=== PATIENT | male | born 2000 | race Two or more races ===

== ENCOUNTER 2022-09-17 02:08 | Emergency (ER) | payer MEDICAID, OTHER ==
[~2022-09-17] VITALS: Ht 188 cm; Wt 113.0 kg
[2022-09-17 02:08] VITALS: BP 139/63; PULSE 73; RESP 2; O2SAT 98
== END 2022-09-17 04:43 | disposition left against medical advice (07) ==
LOC: ER 02:08
DX: F41.9 Anxiety disorder, unspecified (principal); Z53.21 Procedure and treatment not carried out due to patient leaving prior to being seen by health care provider

== ENCOUNTER 2022-10-26 03:18 | Emergency (ER) | payer MEDICAID ==
[~2022-10-26] VITALS: Ht 188 cm; Wt 113.3 kg
[2022-10-26 03:46] VITALS: BP 124/53; PULSE 78; RESP 16; O2SAT 98
[2022-10-26 04:17] VITALS: TEMP 98
[2022-10-26] MEDS ORDERED: DIPH2.5T73 PO ×3 (04:38→05:21)
[2022-10-26] MEDS ORDERED: DIPHENOXYLATE W/ATROPINE 2.5 MG TAB PO ONE (04:45)
[2022-10-26] MEDS ORDERED: LIDOCAINE VISCOUS 2% 15ML UD PO ONE (04:45)
[2022-10-26] MEDS ORDERED: MAALOX PLUS or MAALOX 30 ML PO ONE (04:45)
== END 2022-10-26 05:05 | disposition home or self-care (01) ==
LOC: ER 03:18
DX: R19.7 Diarrhea, unspecified (principal); K21.9 Gastro-esophageal reflux disease without esophagitis; R11.0 Nausea; F41.9 Anxiety disorder, unspecified; Z79.899 Other long term (current) drug therapy

== ENCOUNTER 2022-12-07 22:27 | Emergency (ER) | payer MEDICAID ==
[~2022-12-07] VITALS: Ht 188 cm; Wt 111.0 kg
[~2022-12-07 22:27] MED LIST: DIPH2.5T73 PO
[2022-12-08] MEDS ORDERED: LORazepam 0.5 MG TAB PO ONE (01:30)
[2022-12-08 03:05] VITALS: BP 113/72; PULSE 76; RESP 16; TEMP 98; O2SAT 99
== END 2022-12-08 03:15 | disposition home or self-care (01) ==
LOC: ER 22:27
DX: F41.9 Anxiety disorder, unspecified (principal)
CPT/HCPCS: 93005